=== PATIENT | male | born 1995 | race Caucasian/White ===

== ENCOUNTER 2017-11-30 15:36 | Emergency (ER) | payer BC, OTHER ==
--- NOTE | 2017-11-30 16:09 | Emergency Department Record ---
History of Present Illness - General Chief complaint: Male Urogenital Problem Stated complaint: GROIN PAIN Time Seen by Provider: 11/30/17 16:03 Source: Patient Mode of Arrival: Wheelchair Limitations: No limitations - History of Present Illness Initial comments: Pt states that at 1AM he was getting into a hot bath and felt sudden pain in his right testicle "like it twisted". He then noted pain and swelling. Now it seems like it is "swollen and up higher than normal". Also relates his young nephew "head butting" to the groin in the past day or so. No other reported injury or trauma. No pain with urination. No hx of similar. MD Complaint: Testicle pain Onset/Timin -: Days(s) Location: Right inguinal region, Right testicle Radiation: None Severity: Mild Severity scale (1-10): 2 Quality: Other Consistency: Constant Improves with: None Worsens with: None Reports: Denies other symptoms - Related Data Sexually active: No Home Medications Medication Instructions Recorded Confirmed Last Taken No Home Med [NO HOME MEDS] 11/30/17 11/30/17 Unknown Allergies Allergy/AdvReac Type Severity Reaction Status Date / Time Sulfa (Sulfonamide Allergy HIVES Verified 10/12/14 19:23 Antibiotics) Travel Screening - Travel/Exposure Within Last 30 Days Have you traveled within the last 30 days?: No Review of Systems Constitutional: Denies: Chills, Fever Eyes: Denies: Eye pain Respiratory: Denies: Cough Cardiovascular: Denies: Chest pain Endocrine: Denies: Fatigue Gastrointestinal: Denies: Abdominal pain Genitourinary: Reports: As per HPI Musculoskeletal: Denies: Back pain Past Medical History - SOCIAL HISTORY Smoking Status: Never smoker - RESPIRATORY Hx Respiratory Disorders: No - CARDIOVASCULAR Hx Cardio Disorders: No - NEURO Hx Neuro Disorders: No - GI Hx GI Disorders: No - Hx Genitourinary Disorders: No - ENDOCRINE Hx Endocrine Disorders: No - MUSCULOSKELETAL Hx Musculoskeletal Disorders: No - PSYCH Hx Psych Problems: No - HEMATOLOGY/ONCOLOGY Hx Hematology/Oncology Disorders: No Family Medical History Any Significant Family History?: No Physical Exam - General General Appearance: Alert, Oriented x3, Cooperative, Mild distress Limitations: No limitations - Head Head exam: Atraumatic - Eye Eye exam: Normal appearance - ENT ENT exam: Normal exam - Neck Neck exam: Normal inspection - Respiratory Respiratory exam: Normal lung sounds bilaterally. negative: Wheezes - Cardiovascular Cardiovascular Exam: Regular rate, Normal rhythm - GI/Abdominal GI/Abdominal exam: Soft. negative: Hernia, Tenderness - exam: Circumcision, Testicular tenderness (rigth testicle high riding and tender, minimal swelling. ). negative: Scrotal swelling, Urethral discharge - Extremities Extremities exam: Normal inspection - Neurological Neurological exam: Alert, Oriented X3 - Psychiatric Psychiatric exam: Normal affect, Normal mood - Skin Skin exam: Normal color Course Vital Signs 11/30/17 15:38 Temperature 97.9 F Pulse Rate 92 H Respiratory 18 Rate Blood Pressure 140/78 Pulse Ox 97 Medical Decision Making - Management Options MDM Management: Additional Work-up Planned (e.g. ADM/Transfer/OP Study) - Data Complexity MDM Data: Labs Ordered and/or Reviewed, X-Ray Ordered and/or Reviewed Disposition Disposition: Discharge Clinical Impression: Testicular pain, right Disposition: Home, Self-Care Condition: (1) Good Additional Instructions: Wear supportive underwear at all time. No heavy lifting or activity. Follow up with urologist as per your referral in one to two days Return to the ER if pain or concern Referrals: MERLENE DOUGLASS M.D. [MEDICAL DOCTOR] - Forms: Patient Portal Access Quality - Quality Measures Quality Measures: N/A - Blood Pressure Screening Does Patient Have Any of the Following: No Blood Pressure Classification: Hypertensive Reading Systolic Measurement: 140 Diastolic Measurement: 78 Screening for High Blood Pressure: < Normal BP, F/U Not Required > [G8746]
[2017-11-30 16:17] LABS: URINE APPEARANCE CLEAR; URINE BILIRUBIN NEGATIVE (NEGATIVE); URINE BLOOD NEGATIVE (NEGATIVE); URINE COLOR YELLOW; URINE GLUCOSE (UA) NEGATIVE (NEGATIVE); URINE KETONE NEGATIVE (NEGATIVE); URINE LEUKOCYTE ESTERASE NEGATIVE (NEGATIVE); URINE NITRITE NEGATIVE (NEGATIVE); URINE PROTEIN NEGATIVE (NEGATIVE); URINE UROBILINOGEN 0.2 E.U./dL (0.20 - 1.00)
--- NOTE | 2017-12-01 14:35 | ULTRASOUND REPORT ---
EXAM: SCROTAL ULTRASOUND WITH COMPLETE COLOR DUPLEX AND SPECTRAL WAVEFORM DOPPLER HISTORY: GROIN PAIN TECHNIQUE: Standard scrotal and testicular ultrasound with complete color Duplex and spectral waveform Doppler was completed without comparison. Encounter: Initial. FINDINGS: The testicles are homogeneous in echotexture and vascular flow. I do not see testicular mass. There is a tiny left epididymal head cyst measuring about 4 mm in diameter. I do not seen significant hydrocele. No evidence of epididymal hyperemia. Note is made of likely small left varicocele. There is thickening of the right spermatic cord region. This can represent funiculitis. Complete color Duplex Doppler of the right and left testicles was obtained. There is unidirectional arterial and venous waveforms bilaterally. The left testicle displays peak systolic velocity of about 8 cm per second. The right testicle displays peak systolic velocity of about 7 cm per second. IMPRESSION: 1. MILD THICKENING ABOUT THE REGION OF THE SPERMATIC CORD IN THE RIGHT INGUINAL CANAL. AT TIMES THIS CAN REPRESENT INFLAMMATORY CHANGES SUCH FUNICULITIS. PLEASE CORRELATE CLINICALLY. 2. BORDERLINE DILATATION OF LEFT VENOUS PLEXUS MAY REPRESENT EARLY VARICOCELE. 3. NO EVIDENCE OF TESTICULAR TORSION OR TESTICULAR MASS. SMALL SIMPLE LEFT EPIDIDYMAL HEAD CYST. JOB NUMBER: [id number] [facility]
== END 2017-11-30 18:06 | disposition home or self-care (01) ==
LOC: ER 15:36
DX: N50.811 Right testicular pain (principal)
CPT/HCPCS: 76870; 81003; 99283